=== PATIENT | male | born 1975 | race Caucasian/White ===

== ENCOUNTER 2017-02-22 08:31 | Emergency (ER) | payer OTHER ==
[~2017-02-22] VITALS: Ht 175.3 cm; Wt 72.6 kg
[2017-02-22 08:36] VITALS: BP 141/80
[2017-02-22] MEDS ORDERED: METHOCARBAMOL 500 MG TAB PO ONE (09:15)
[2017-02-22] MEDS ORDERED: HYDROcodone-ACET 10/325MG TAB PO ONE (09:15)
== END 2017-02-22 10:06 | disposition home or self-care (01) ==
LOC: ER 08:35
DX: S40.011A Contusion of right shoulder, initial encounter (principal); V49.49XA Driver injured in collision with other motor vehicles in traffic accident, initial encounter; Y93.89 Activity, other specified; Y99.8 Other external cause status; Y92.410 Unspecified street and highway as the place of occurrence of the external cause
CPT/HCPCS: 73030